=== PATIENT | female | born 1975 | race African-American/Black ===

== ENCOUNTER 2021-07-20 20:55 | Inpatient (IN) | payer OTHER ==
[~2021-07-20] VITALS: Wt 192.8 kg
[~2021-07-20 20:55] MED LIST: PROVENTIL0.09 MG/AC IH; ZITHROMAX Z PA250 MG PO; ZOFRAN4 MG PO
[2021-07-20 21:18] LABS: BASO % 0.7 % (0.0-1.0); EOS # 0.1 10*3/uL (0.0-0.4); HEMATOCRIT 39.1 % (37.0-47.0); LYMPH # 2.5 10*3/uL (1.3-4.4); LYMPH % 40.9 % (27.0-41.0); MEAN CELL VOLUME 80.1 fl (81.0-99.0); MEAN CORPUSCULAR HGB CONC 32.5 g/dl (33.0-37.0); MEAN PLATELET VOLUME 10.2 fl (9.6-12.3); MONO # 0.5 10*3/uL (0.1-1.0); MONO % 7.4 % (3.0-9.0); NEUT # 3.1 10*3/uL (2.3-7.9); NEUT % 49.8 % (47.0-73.0); PLATELET COUNT AUTOMATED 285 10*3/uL (130-400); RED BLOOD COUNT 4.88 10*6/uL (4.10-5.10); RED CELL DISTRI WIDTH 16.7 % (0-14.5); WHITE BLOOD COUNT 6.1 10*3/uL (4.8-10.8)
[2021-07-20 21:36] LABS: ALBUMIN 3.1 gm/dl (3.1-4.5); ALKALINE PHOSPHATASE 101 U/L (45-117); BUN 13 mg/dl (7-24); CHLORIDE 102 mmol/L (98-107); POTASSIUM 3.8 mmol/L (3.5-5.1); SGOT/AST 12 IU/L (3-35); SGPT/ALT 16 U/L (12-78); SODIUM 137 mmol/L (136-145); TOTAL PROTEIN 8.6 gm/dL (6.4-8.2)
[2021-07-20 21:42] LABS: TROPONIN I < 0.015 ng/ml (<0.045)
[2021-07-21] VITALS (7 sets, daily range): BP systolic 121–158; BP diastolic 70–116
[2021-07-21] MEDS ORDERED: Lopressor25 MG PO (00:57)
[2021-07-21] MEDS ORDERED: HYDROCHLOROTHIA25 M1 PO (00:57)
[2021-07-21] MEDS ORDERED: VALSARTAN160 MG PO (00:57)
[2021-07-21 03:33] LABS: BASO % 0.4 % (0.0-1.0); HEMATOCRIT 39.9 % (37.0-47.0); LYMPH # 0.6 10*3/uL (1.3-4.4); LYMPH % 10.3 % (27.0-41.0); MEAN CORPUSCULAR HGB 25.7 pg (27.0-31.0); MEAN CORPUSCULAR HGB CONC 32.1 g/dl (33.0-37.0); MEAN PLATELET VOLUME 10.8 fl (9.6-12.3); MONO # 0.1 10*3/uL (0.1-1.0); MONO % 1.4 % (3.0-9.0); NEUT % 87.7 % (47.0-73.0); PLATELET COUNT AUTOMATED 294 10*3/uL (130-400); RED BLOOD COUNT 4.99 10*6/uL (4.10-5.10); RED CELL DISTRI WIDTH 16.5 % (0-14.5); WHITE BLOOD COUNT 5.7 10*3/uL (4.8-10.8)
[2021-07-21 04:33] LABS: ALBUMIN 3.1 gm/dl (3.1-4.5); ALKALINE PHOSPHATASE 97 U/L (45-117); BUN 12 mg/dl (7-24); CHLORIDE 103 mmol/L (98-107); CHOLESTEROL 174 mg/dL (<200); CREATININE 1.05 mg/dL (0.55-1.02); LDL CHOLESTEROL 108 mg/dL (9-159); POTASSIUM 3.7 mmol/L (3.5-5.1); SGOT/AST 14 IU/L (3-35); SGPT/ALT 16 U/L (12-78); SODIUM 134 mmol/L (136-145); TOTAL PROTEIN 8.5 gm/dL (6.4-8.2); TRIGLYCERIDES 49 mg/dl (<150)
[2021-07-21 04:35] LABS: FREE T4 1.34 ng/dl (0.76-1.46)
[2021-07-21 04:41] LABS: THYROID STIM HORMONE (HS) 0.316 uIU/ml (0.358-4.75)
[2021-07-21 07:28] LABS: VITAMIN D, 25-HYDROXY 12.9 ng/mL (30-100)
[2021-07-21 07:29] LABS: FERRITIN 41.3 ng/mL (10.0-291.0)
[2021-07-22] VITALS: BP 158/98; BP 161/107
[2021-07-22 04:00] VITALS: BP 142/92
[2021-07-22 06:26] LABS: BASO % 0.2 % (0.0-1.0); HEMATOCRIT 38.3 % (37.0-47.0); LYMPH # 2.1 10*3/uL (1.3-4.4); LYMPH % 31.9 % (27.0-41.0); MEAN CORPUSCULAR HGB 25.5 pg (27.0-31.0); MEAN CORPUSCULAR HGB CONC 31.9 g/dl (33.0-37.0); MEAN PLATELET VOLUME 11.1 fl (9.6-12.3); MONO # 0.3 10*3/uL (0.1-1.0); MONO % 5.1 % (3.0-9.0); NEUT % 62.6 % (47.0-73.0); PLATELET COUNT AUTOMATED 293 10*3/uL (130-400); RED BLOOD COUNT 4.79 10*6/uL (4.10-5.10); RED CELL DISTRI WIDTH 16.4 % (0-14.5); WHITE BLOOD COUNT 6.4 10*3/uL (4.8-10.8)
[2021-07-22 06:29] LABS: CHLORIDE 105 mmol/L (98-107); SODIUM 137 mmol/L (136-145)
[2021-07-22 06:36] LABS: BUN 15 mg/dl (7-24); CREATININE 1.01 mg/dL (0.55-1.02)
[2021-07-22 08:00] VITALS: BP 154/104
[2021-07-22 12:00] VITALS: BP 155/104
[2021-07-22 16:31] VITALS: BP 144/94
[2021-07-22 20:00] VITALS: BP 150/91
[2021-07-23] VITALS: BP 145/96
[2021-07-23 08:00] VITALS: BP 152/100
[2021-07-23 12:00] VITALS: BP 152/105
[2021-07-23 13:00] VITALS: BP 140/90
[2021-07-23 16:00] VITALS: BP 149/92
[2021-07-23 20:00] VITALS: BP 160/118
[2021-07-24] VITALS: BP 140/95
[2021-07-24 04:04] VITALS: BP 148/90
[2021-07-24 08:00] VITALS: BP 156/111
[2021-07-24 12:00] VITALS: BP 158/99
[2021-07-24 16:00] VITALS: BP 150/89
[2021-07-24 20:00] VITALS: BP 161/108
[2021-07-25] VITALS: BP 152/99
[2021-07-25 08:00] VITALS: BP 141/82
[2021-07-25] MEDS ORDERED: PREDNISONE10 MG PO (10:59)
[2021-07-25] MEDS ORDERED: MUCUS RELIEF600 MG PO (10:59)
[2021-07-25] MEDS ORDERED: VITAMIN D350 MC2 PO (10:59)
[2021-07-25] MEDS ORDERED: LEVOFLOXACIN750 M2 PO (10:59)
[2021-07-25] MEDS ORDERED: PROVENTIL HFA6.7 GM INH (11:00)
[2021-07-25 12:02] VITALS: BP 157/91
== END 2021-07-25 14:56 | disposition home or self-care (01) | DRG 720 ==
LOC: ED 20:55 → EDHOLD 22:52 → 4E 22:52 → 5E 23:37 → 4E 07-21 02:04
PROVIDERS: Internal Medicine; Student in an Organized Health Care Education/Training Program; ADMIT Internal Medicine; ATTEND Internal Medicine
PROC: 05HY33Z Insertion of Infusion Device into Upper Vein, Percutaneous Approach (ICD-10-PCS; principal; 2021-07-22)
DX: A41.9 Sepsis, unspecified organism (principal); J45.901 Unspecified asthma with (acute) exacerbation; N17.0 Acute kidney failure with tubular necrosis; J18.9 Pneumonia, unspecified organism; R65.20 Severe sepsis without septic shock; Z20.822 Contact with and (suspected) exposure to COVID-19; T38.0X5A Adverse effect of glucocorticoids and synthetic analogues, initial encounter; I12.9 Hypertensive chronic kidney disease with stage 1 through stage 4 chronic kidney disease, or unspecified chronic kidney disease; N18.31 Chronic kidney disease, stage 3a; J20.9 Acute bronchitis, unspecified; F17.210 Nicotine dependence, cigarettes, uncomplicated; M10.9 Gout, unspecified; E66.01 Morbid (severe) obesity due to excess calories; R73.9 Hyperglycemia, unspecified; Z71.6 Tobacco abuse counseling; Z12.10 Encounter for screening for malignant neoplasm of intestinal tract, unspecified; Z88.0 Allergy status to penicillin; Z79.899 Other long term (current) drug therapy; Y92.89 Other specified places as the place of occurrence of the external cause; Z68.43 Body mass index [BMI] 50.0-59.9, adult